=== PATIENT | female | born 1940 | race Caucasian/White ===

== ENCOUNTER 2023-07-24 00:54 | Emergency (ER) | payer OTHER ==
[~2023-07-24] VITALS: Ht 165.1 cm; Wt 70.0 kg
[2023-07-24] MEDS: SODIUM CHLORIDE 0.9% 1,000 ML IV ONE (00:55)
[2023-07-24 01:26] LABS: Basophils # (auto) 0 10 ^3/uL (0-0.2); Basophils % (auto) 0.5 % (0.0-2.0); Eosinophils # (auto) 0.1 10 ^3/uL (0-0.8); Eosinophils % (auto) 2.3 % (0.0-7.0); Hematocrit 38.5 % (36.0-46.0); Hemoglobin 12.5 g/dL (12.2-16.2); Lymphocytes # (auto) 1.6 10 ^3/uL (0.4-5.4); Lymphocytes % (auto) 33.6 % (10.0-50.0); Mean Corpuscular Hemoglobin 32.9 pg (28.0-32.0); Mean Corpuscular Hgb Conc. 32.5 g/dL (32.0-36.0); Mean Corpuscular Volume 101.1 fL (80.0-100.0); Monocytes # (auto) 0.5 10 ^3/uL (0-1.3); Neutrophils # (auto) 2.6 10 ^3/uL (1.6-8.6); Neutrophils % (auto) 53.6 % (37.0-80.0); Nucleated Red Blood Cells % 0.1 %; Red Blood Cells 3.81 10^6/uL (4.0-5.20); Red Cell Distribution Width 15.9 % (11.8-14.3); White Blood Cell 4.9 10^3/uL (4.4-10.8)
[2023-07-24] MEDS: LIDOCAINE W/ EPINEPHRINE 2% INJ 20ML VIAL ONE (01:39)
[2023-07-24 01:41] LABS: INR 1.35 (0.9-1.15); Partial Thromboplastin Time 34.9 SEC (24.5-34.5); Prothrombin Time 13.9 sec (9.3-11.8)
[2023-07-24] MEDS: LIDOCAINE 2% (LOCAL ANESTH.) PF 5ml SDV IJ ONE (01:42)
[2023-07-24] MEDS: ceFAZolin 1GM/50ML 50 ML IV ONE (02:11)
[2023-07-24] MEDS: IOHEXOL 350 MG/ML 100ML IJ ONE (02:11)
[2023-07-24 02:13] LABS: Alanine Aminotransferase 22 U/L (7-40); Albumin 3.5 g/dL (3.2-4.8); Alkaline Phosphatase 98 U/L (46-116); Anion Gap 13 (5-15); Aspartate Aminotransferase 36 U/L (13-40); BUN/Creatinine Ratio 17.4 (10.0-20.0); Bilirubin, Total 0.2 mg/dL (0.2-1.0); Blood Urea Nitrogen 19 mg/dL (9-23); Calcium 7.5 mg/dL (8.7-10.4); Carbon Dioxide 18 mmol/L (20-30); Chloride 111 mmol/L (98-107); Glucose 102 mg/dL (74-106); Potassium 3.5 mmol/L (3.5-5.1); Sodium 142 mmol/L (136-145); Total Protein 5.6 g/dL (5.7-8.2)
[2023-07-24] MEDS: TETANUS-DIPTH-ACEL PERTUSSIS 0.5ML SYR Tdap IM ONE (02:14)
[2023-07-24] MEDS: levETIRAcetam 1000 mg/100ml 100 ML IV ONE (07:04)
[2023-07-24] MEDS: levETIRAcetam 500 MG/5ML INJ IV ONE (07:04)
[2023-07-24 07:40] VITALS: PULSE 64; RESP 18; O2SAT 97
[2023-07-24 08:25] VITALS: BP 130/55; PULSE 69; RESP 12; TEMP 98.1; O2SAT 97
== END 2023-07-24 09:28 | disposition short-term general hospital (02) ==
LOC: EDBD 00:54 → ER 00:54
DX: S01.81XA Laceration without foreign body of other part of head, initial encounter (principal); S01.01XA Laceration without foreign body of scalp, initial encounter; Z86.73 Personal history of transient ischemic attack (TIA), and cerebral infarction without residual deficits; Z79.01 Long term (current) use of anticoagulants; Z79.899 Other long term (current) drug therapy; W06.XXXA Fall from bed, initial encounter; Y93.89 Activity, other specified; Y92.89 Other specified places as the place of occurrence of the external cause; Y99.8 Other external cause status
CPT/HCPCS: 12004; 12015; 36415; 70450; 70486; 71250; 72125; 72128; 72131; 74176; 80053; 83735; 84484; 85025; 85610; 85730; 90471; 90715; 96361; 96365; 96366; 96367; 99285; J0690; J1953; J2001; J7030; Q9967